=== PATIENT | female | born 1980 | race Two or more races ===

== ENCOUNTER 2019-02-17 07:39 | Emergency (ER) | payer MEDICAID ==
[~2019-02-17] VITALS: Ht 162.6 cm; Wt 129.0 kg
[~2019-02-17 07:39] MED LIST: FERR-46 PO; GABA-826 PO; ONDA4TAB7; OXYC-302; VITA1CAP
--- NOTE | 2019-02-17 08:07 | NUR ---
PATIENT BROUGHT BACK FROM TRIAGE WITH CHIEF COMPLAINT OF INCREASING ABD PAIN OVER NIGHT BUT HAS BEEN PRESENT FOR ABOUT 1 WEEK. PATIENT ALSO COMPLAINS OF SINUS CONGESTIONS AND COUGH. PATIET STATES SHE TOOK MOTRIN LAST NIGHT. DENIES CP, SOB, FEVER, VOMITING, HOWEVER INTERMITTENT NAUSEA.
[2019-02-17] MEDS ORDERED: OMEP10CA5 PO (08:15)
[2019-02-17] MEDS ORDERED: DULO30CA2 PO (08:15)
[2019-02-17] MEDS ORDERED: LEFL20TA16 PO (08:15)
[2019-02-17] MEDS ORDERED: TOPI25TA32 PO (08:15)
[2019-02-17] MEDS ORDERED: IBUP200T49 PO (08:15)
[2019-02-17 08:45] LABS: MICROSCOPIC NOT IND
[2019-02-17 08:51] LABS: CULTURE INDICATED? NO
[2019-02-17 08:52] LABS: BASOPHILS # (AUTO) 0.02 x10^3/uL (0-0.1); BASOPHILS % (AUTO) 0 % (0-1); EOSINOPHILS # (AUTO) 0.06 x10^3/uL (0-0.4); EOSINOPHILS % (AUTO) 1 % (1-7); LYMPHOCYTES # (AUTO) 1.76 x10^3/uL (1-3.4); LYMPHOCYTES % (AUTO) 33 % (22-44); MD NO; MEAN CORPUSCULAR HEMOGLOBIN 29.3 pg (27.0-34.8); MEAN CORPUSCULAR HGB CONC 32.8 g/dL (32.4-35.8); MEAN CORPUSCULAR VOLUME 89.3 fL (80-100); MEAN PLATELET VOLUME 8.7 fL (7.4-10.4); MONOCYTES # (AUTO) 0.49 x10^3/uL (0.2-0.8); MONOCYTES % (AUTO) 9 % (2-9); NEUTROPHILS # (AUTO) 3.01 x10^3/uL (1.8-6.8); NEUTROPHILS % (AUTO) 57 % (42-75); PLATELET COUNT 214 x10^3/uL (130-400); RED CELL DISTRIBUTION WIDTH 13.9 % (9.6-15.2)
[2019-02-17 09:02] LABS: ALANINE AMINOTRANSFERASE 34 U/L (12-78); ALBUMIN 3.4 g/dL (3.4-5.0); CALCIUM 7.9 mg/dL (8.5-10.1); CREATININE 0.59 mg/dL (0.55-1.02)
[2019-02-17 09:06] LABS: ALKALINE PHOSPHATASE 100 U/L (45-117); BILIRUBIN,TOTAL 0.2 mg/dL (0.2-1.0); TOTAL PROTEIN 7.9 g/dL (6.4-8.2)
--- NOTE | 2019-02-17 09:07 | NUR ---
REPORT TO KENZIE ANDERSEN
[2019-02-17 09:17] LABS: ANION GAP 5 mmol/L (5-15); CHLORIDE 111 mmol/L (98-107)
--- NOTE | 2019-02-17 09:51 | NUR ---
This RN to answer call light. Patient needed to use restroom and states shes been waiting for a med for 2 hours and noone has checked on her since Jessica left. Will notify primary RN
--- NOTE | 2019-02-17 10:02 | NUR ---
REPORT RECEIVED FROM GANESH DEAN. ASSUMED CARE OF PT.
--- NOTE | 2019-02-17 10:53 | NUR ---
CARE ASSUMED FROM SURAJ PRECEPTOR. XR ABD WNL. LABS/UA WNL. DR PRICE AT BEDSIDE FOR EVAL. PLAN FOR CT ABD. PT A&O X4 GCS 15. 7/10 PAIN LUQ PAIN, UNFLUCTUATING. DENIES NAUSEA AT THIS TIME. IF CT WNL PLAN FOR DC AND MAG CITRATE AT HOME, PT VERBALIZES UNDERSTANDING. VSS. CALL [facility] IN REACH, AT BEDSIDE.
[2019-02-17 12:13] VITALS: BP 104/55
--- NOTE | 2019-02-17 12:13 | NUR ---
PT BACK FROM CT. DENIES NAUSEA, NO CHANGE IN ABDOMINAL PAIN. RESTING CALMLY, CALL [facility]OPEZA IN REACH, VSS. AWAITING CT RESULTS.
[2019-02-17] MEDS ORDERED: OMNIPAQUE 350 MG/ML, 150 ML BOTTLE ONE (12:42)
== END 2019-02-17 12:24 | disposition home or self-care (01) ==
LOC: ED 08:30
DX: R10.12 Left upper quadrant pain (principal); R11.0 Nausea; G43.909 Migraine, unspecified, not intractable, without status migrainosus; J45.909 Unspecified asthma, uncomplicated; M06.9 Rheumatoid arthritis, unspecified
CPT/HCPCS: 36415; 74021; 74177; 80053; 81003; 83690; 84703; 85025; 93005; 99284; Q9967

== ENCOUNTER 2020-03-20 17:05 | Emergency (ER) | payer MEDICAID ==
[~2020-03-20] VITALS: Ht 162.6 cm; Wt 126.0 kg
[~2020-03-20 17:05] MED LIST changes: +DULO30CA2 PO; +IBUP200T49 PO; +LEFL20TA16 PO; +OMEP10CA5 PO; +TOPI25TA32 PO
[2020-03-20 17:36] VITALS: BP 124/65
--- NOTE | 2020-03-20 18:08 | NUR ---
MOLDING LINE ASSISTANT: PT SIGNED REQUEST FOR DC.
== END 2020-03-20 18:16 | disposition left against medical advice (07) ==
LOC: ED 17:36
DX: R10.9 Unspecified abdominal pain (principal); Z53.21 Procedure and treatment not carried out due to patient leaving prior to being seen by health care provider